=== PATIENT | female | born 1990 | race Caucasian/White ===

== ENCOUNTER 2024-06-01 22:54 | Inpatient (IN) | payer SELFPAY ==
[~2024-06-01] VITALS: Ht 162.6 cm; Wt 69.9 kg
[2024-06-02] MEDS: ONDANSETRON HCL INJ 2MG/ML 2ML 2 MG/ML VIAL IV STA (00:11)
[2024-06-02] MEDS: SODIUM CHLORIDE 0.9% 1000ML 1,000 ML IV SCH (00:11)
[2024-06-02] MEDS: Morphine 4mg INJECTION 4 MG/ML INJ IV ONE (00:32)
[2024-06-02 02:50] VITALS: PULSE 45; RESP 18; TEMP 97.9
[2024-06-02 02:51] VITALS: BP 143/67; PULSE 45; RESP 18; TEMP 97.9; O2SAT 97
[2024-06-02] MEDS: CEFTRIAXONE 1 GM VIAL IM ONE (03:08)
== END 2024-06-02 02:51 | disposition other institution (70) | DRG 690 ==
LOC: FSED 23:11 → ERHOLD 06-02 00:32
PROVIDERS: ADMIT Internal Medicine; ATTEND Internal Medicine
DX: N30.91 Cystitis, unspecified with hematuria (principal); R18.8 Other ascites; R00.1 Bradycardia, unspecified
CPT/HCPCS: 71045; 74176; 80053; 80076; 80307; 81003; 81025; 84484; 85025; 85610; 93005; 96374; 96375; 99284; J0696; J2270; J2405; J7030